=== PATIENT | male | born 1980 | race Caucasian/White ===

== ENCOUNTER 2020-01-10 19:07 | Emergency (ER) | payer SELFPAY ==
[2020-01-10 19:36] VITALS: PULSE 105; TEMP 98.5; BMI 34.0
[2020-01-10 20:05] LABS: BASO % 0.5 % (0-2.0); EOS % 1.1 % (0-4.5); HEMATOCRIT 43.4 % (35.4-49); HEMOGLOBIN 14.4 GM/dl (11.7-16.9); LYMPH % 33.3 % (8-40); MCH 28.2 pg (25.7-33.7); MCHC 33.2 g/dl (32.0-35.9); MEAN CELL VOLUME 84.9 fl (80-96); MEAN PLT VOLUME 8.5 fl (7.5-11.1); MONO % 6.6 % (3.8-10.2); NEUT % 58.5 % (42.8-82.8); PLATELET COUNT 216 K/MM3 (134-434); RBC 5.11 M/mm3 (4.00-5.60); RDW 13.1 % (11.9-15.9); WHITE BLOOD COUNT 7.1 K/mm3 (4.0-10.8)
[2020-01-10 20:10] LABS: ALBUMIN 4.1 g/dl (3.4-5.0); BILIRUBIN,TOTAL 1.1 mg/dl (0.2-1); CALCIUM 9.2 mg/dl (8.5-10); CREATININE 0.9 mg/dl (0.55-1.3); POTASSIUM 3.7 mmol/L (3.5-5.1); TOT PROT 7.1 g/dl (6.4-8.2)
[2020-01-10 20:33] VITALS: BP 132/94
--- NOTE | 2020-01-10 22:39 | PDOC ---
Documentation entered by Ayaka Fontana SCRIBE, acting as scribe for Santiago Marte MD. Santiago Marte MD: This documentation has been prepared by the agustinibeVadim deshaun,DOMINICK Marley, under my direction and personally reviewed by me in its entirety. I confirm that the documentation accurately reflects all work, treatment, procedures, and medical decision making performed by me. History of Present Illness - General Chief Complaint: Chest Pain Stated Complaint: CHEST DISCOMFORT MILD PRESSURE 3 DAYS Time Seen by Provider: 01/10/20 19:10 History Source: Patient Exam Limitations: No Limitations - History of Present Illness Initial Comments: 01/10/20 19:50 The patient is a 39-year-old male with no reported past medical history who presents to the emergency department with chest pressure. The patient presents with 3-4 days of intermittent chest pressure, associated with elevated blood pressure. The patient reports he bought an [facility] blood pressure cuff to monitor his blood pressure. The patient reports he checked his blood pressure today during an episode of symptoms, and he recalls the BP was elevated to 240/140s. The patient reports he was concerned and called a friend who is a referral manager, who received the blood pressure, which was recorded to be 180/120. The patient reports a day prior to the onset of the symptom, the patient did get a deep tissue massage. 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 Denies fever, chills, cough. Denies leg swelling. Denies a history of blood clots. Denies prior treatments for HTN. Denies recent travel. Denies cardiac follow-ups. Allergies: NKA Social history: Denies the use of tobacco or recreational drugs. Family history: Grandfathers: MIs (before age 50, ). Father: HTN, HLD and s/p CABG (2 years ago, now 72 years old). Mother: s/p 2 cardiac stents (2019). Grandmothers: (TIA and stroke). PCP: Jim Perez. Past History - Past Medical History Allergies/Adverse Reactions: Allergies Allergy/AdvReac Type Severity Reaction Status Date / Time No Known Allergies Allergy Unverified 01/10/20 19:08 Home Medications: Ambulatory Orders Metoprolol Succinate 50 mg PO DAILY #30 tab.er.24h 01/10/20 Review of Systems - Review of Systems Able to Perform ROS?: Yes Comments:: 01/10/20 19:50 Constitutional - Pt denies Fever, Chills, weakness, HEENT: denies vision changes, sore throat Respiratory: Denies cough, sob, hemoptysis Cardiac: +chest pressure. denies chest pain, palpitations, lightheadedness, leg swelling Abd/GI: denies abd pain, nausea, vomiting, blood per rectum, melena, diarrhea : denies dysuria, frequency, discharge Musculoskeletal - denies back pain, joint swelling skin - denies bruising, erythema, rash neurological: denies headache, numbness, focal weakness, tingling, ataxia, weakness hematologic: denies anemia, easy bruising, easy bleeding *Physical Exam - Vital Signs Last Vital Signs Temp Pulse Resp BP Pulse Ox 98.5 F 105 H 16 132/94 100 01/10/20 19:08 01/10/20 19:08 01/10/20 19:08 01/10/20 20:33 01/10/20 19:08 - Physical Exam 01/10/20 19:53 CONSTITUTIONAL: Well-appearing; well-nourished; in no apparent distress HEAD: Normocephalic; atraumatic EYES: PERRL; EOM intact ENMT: External appears normal NECK: Supple; non-tender CARD: Blood pressure during examination: Right arm: 149/109 Left arm: 161/106. Normal S1, S2; no murmurs, rubs, or gallops. RESP: breath sounds clear and equal bilaterally; no wheezes, rhonchi, or rales ABD: Soft, non-distended; non-tender EXT: Normal ROM in all four extremities; non-tender SKIN: Warm, dry, no rash NEURO: No focal neurological deficiencies. Heart Score/ECG Review - ECG Impressions Comment:: 01/10/20 20:27 Normal sinus rhythm at 98 Normal axis Normal intervals No ischemic findings. ED Treatment Course - LABORATORY CBC & Chemistry Diagram: 01/10/20 19:45 01/10/20 19:45 - ADDITIONAL ORDERS Additional order review: Laboratory Results 01/10/20 01/10/20 01/10/20 23:05 19:45 19:45 Sodium 138 Potassium 3.7 Chloride 105 Carbon Dioxide 23 Anion Gap 10 BUN 18.0 Creatinine 0.9 Est GFR (CKD-EPI)AfAm 122.52 Est GFR (CKD-EPI)NonAf 105.71 Random Glucose 95 Calcium 9.2 Total Bilirubin 1.1 H AST 20 ALT 25 Alkaline Phosphatase 68 Troponin I < 0.03 < 0.03 Total Protein 7.1 Albumin 4.1 01/10/20 19:45 RBC 5.11 MCV 84.9 MCHC 33.2 RDW 13.1 MPV 8.5 Neutrophils % 58.5 Lymphocytes % 33.3 Monocytes % 6.6 Eosinophils % 1.1 Basophils % 0.5 - RADIOLOGY Radiology Studies Ordered: Category Date Time Status CHEST PA & LAT [RAD] Stat Radiology 01/10/20 19:30 Completed - Medications Given in the ED: ED Medications Discontinued Medications Generic Name Dose Route Start Last Admin Trade Name Freq PRN Reason Stop Dose Admin Metoprolol Succinate 50 mg 01/10/20 23:48 01/11/20 00:08 Toprol Xl - PO 01/10/20 23:49 50 mg ONCE ONE Administration Medical Decision Making - Medical Decision Making 01/11/20 03:20 heart 2 cp elevated bp serial enzymes outpt cardiology anti-htn, lifestyle modifications Discharge - Discharge Information Problems reviewed: Yes Clinical Impression/Diagnosis: Chest pain Qualifiers: Chest pain type: unspecified Qualified Code(s): R07.9 - Chest pain, unspecified Condition: Good Disposition: HOME - Admission No - Additional Discharge Information Prescriptions: Metoprolol Succinate 50 mg PO DAILY #30 tab.er.24h - Follow up/Referral - Patient Discharge Instructions Patient Printed Discharge Instructions: DI for Chest Pain - Post Discharge Activity
[2020-01-11] MEDS ORDERED: traMADol HCL 50 MG TABLET ONE (00:01)
--- NOTE | 2020-01-12 10:25 | EKG ---
Test Reason : Blood Pressure : / mmHG Vent. Rate : 098 BPM Atrial Rate : 098 BPM P-R Int : 162 ms QRS Dur : 084 ms QT Int : 332 ms P-R-T Axes : 043 051 031 degrees QTc Int : 423 ms POOR DATA QUALITY, INTERPRETATION MAY BE ADVERSELY AFFECTED NORMAL SINUS RHYTHM POSSIBLE LEFT ATRIAL ENLARGEMENT BORDERLINE ECG NO PREVIOUS ECGS AVAILABLE Confirmed by Hannah Thomas ([id number]) on 01/12/2020 10:25:19 AM Referred By: CARIDAD Confirmed By:Hannah Thomas
== END 2020-01-11 00:04 | disposition home or self-care (01) ==
LOC: FER 19:07
DX: R07.9 Chest pain, unspecified (principal)
CPT/HCPCS: 36415; 71046-TC-FY; 80053; 84484; 85025; 93005; 99284-25